=== PATIENT | male | born 1995 | race African-American/Black ===

== ENCOUNTER 2017-06-28 10:12 | Emergency (ER) | payer SELFPAY | END 2017-06-28 12:08 | disposition home or self-care (01) | LOC: ERS 10:12 | DX: J06.9 Acute upper respiratory infection, unspecified (principal); J45.909 Unspecified asthma, uncomplicated; F17.210 Nicotine dependence, cigarettes, uncomplicated | CPT/HCPCS: 87081; 87430; 99283 ==

== ENCOUNTER 2018-03-14 14:58 | Emergency (ER) | payer SELFPAY ==
[2018-03-14 16:53] LABS: Bilirubin Negative (Negative); Blood, Urine Negative (Negative); Clarity CLEAR (Clear); Glucose, Urine (Dipstick) Negative (Negative); Leukocyte Large (Negative); Nitrite Negative (Negative); Protein, Urine (Dipstick) Negative (Neg-Trace)
[2018-03-14 16:55] LABS: Bacteria/HPF None Seen HPF (None Seen); Hyaline Casts/LPF 4-6 HYALINE CAST LPF (0-3 Hyaline); Pathc Cast-AUWi Flag 0.58 (0-2.49); RBC/HPF 0-3 HPF (0-3); WBC/HPF 21-50 HPF (0-3)
[2018-03-14 17:08] LABS: Renal Epithelial None Seen HPF (0-3); Transitional Epithelial NONE SEEN HPF (0-3)
--- NOTE | 2018-03-14 18:02 | ULT ---
ULTRASOUND SCROTUM TESTICLES DOPPLER DUPLEX: 03/14/18 HISTORY: 22-year-old male with left scrotal pain and swelling for two days. TECHNIQUE: Choi-scale evaluation of intrascrotal contents. Color flow Doppler and spectral waveform analysis of the testicles. FINDINGS: There is increased blood flow (hyperemia) involving a left intrascrotal, extra-testicular mass which probably represents an enlarged, edematous left epididymal body and tail. There is a small left hydro kuldeep which appears loculated. The left epididymal head, right epididymal head, left testicle, and right testicle, are normal in siz e and echogenicity. Symmetrical blood flow is demonstrated in both testicles by doppler. No evidence of solid testicular mass. IMPRESSION: Evidence for left sided epididymitis (involving the body and tail of the epididymis). VANDA Ruiz POS: [facility]
[2018-03-14] MEDS ORDERED: Azithromycin 250 MG TAB ONE (18:04)
[2018-03-14] MEDS ORDERED: cefTRIAXone\\ROCEPHIN 250 MG VIAL ONE (18:04)
[2018-03-14] MEDS ORDERED: Lidocaine 1% (PF) 30 ML VIAL ONE (18:05)
[2018-03-16 01:14] LABS: Chlamydia by PCR DETECTED (NotDetected); GC by PCR Not Detected (NotDetected)
== END 2018-03-14 18:34 | disposition home or self-care (01) ==
LOC: ERS 14:58
DX: N45.1 Epididymitis (principal); J45.909 Unspecified asthma, uncomplicated; F17.210 Nicotine dependence, cigarettes, uncomplicated
CPT/HCPCS: 76870; 81003; 81015; 87491; 87591; 96372; J0696; J2001

== ENCOUNTER 2021-06-02 15:39 | Emergency (ER) | payer SELFPAY | END 2021-06-02 17:37 | disposition left against medical advice (07) | LOC: ERS 15:39 | DX: R50.9 Fever, unspecified (principal) | CPT/HCPCS: 99282 ==

== ENCOUNTER 2022-03-31 15:48 | Observation (INO) | payer SELFPAY ==
[2022-03-31 16:27] LABS: #Lymphocytes 1.5 thou/uL (1.20-3.40); #Monocytes 0.5 thou/uL (0.11-0.59); #Neutrophils 9.4 thou/uL (1.40-6.50); %Basophils 0.4 % (0.0-1.0); %Eosinophils 0.2 % (0.0-10.0); %Monocytes 4.6 % (0.0-10.0); %Neutrophils 81.8 % (42.0-75.0); Hemoglobin 16.4 g/dL (14.0-18.0); Mean Corpuscular HGB CONC 33.1 g/dL (32.0-36.0); Mean Corpuscular Hemoglobin 31.9 pg (27.0-31.0); Mean Corpuscular Volume 96.4 fL (78.0-98.0); Mean Platelet Volume 8.1 fL (7.4-10.4); Platelet Count 237 thou/uL (130-400); RBC Distribution Width 12.1 % (11.5-14.5); Red Blood Cell (RBC) Count 5.16 mill/uL (4.70-6.10); White Blood Cell (WBC) Count 11.4 thou/uL (4.8-10.8)
[2022-03-31 16:48] LABS: ALT (SGPT) 21 U/L (8-55); AST (SGOT) 39 U/L (5-34); Albumin 4.6 g/dL (3.5-5.0); Alkaline Phosphatase 90 U/L (40-110); Anion Gap 18 mmol/L (10-20); BUN (Urea Nitrogen) 10 mg/dL (8.9-20.6); CK (CPK) 919 U/L (30-200); Calc. Creatinine Clearance 0 mL/min (70-130); Calcium 9.8 mg/dL (7.8-10.44); Carbon Dioxide 26 mmol/L (22-29); Chloride 101 mmol/L (98-107); Estimated GFR 44; Globulin 2.7 g/dL (2.4-3.5); Glucose 126 mg/dL (70-105); Protein, Total 7.3 g/dL (6.0-8.3); Sodium 141 mmol/L (136-145)
[2022-03-31] MEDS ORDERED: Ondansetron PF 4 MG/2 ML Vial ONE (17:07)
[2022-03-31] MEDS ORDERED: Ondansetron PF 4 MG/2 ML Vial IVP PRN (17:57)
[2022-03-31] MEDS ORDERED: Ondansetron ODT 4 MG TAB PO PRN (17:57)
[2022-03-31] MEDS ORDERED: Acetaminophen 325 MG TAB PO PRN (17:57)
[2022-03-31] MEDS: Sodium Chloride 0.9% 1,000 ML IV SCH (20:47)
[2022-03-31 21:28] VITALS: BMI 19.3
[2022-04-01] MEDS: Sodium Chloride 0.9% 1,000 ML IV SCH (03:53)
[2022-04-01 05:46] LABS: #Eosinphils 0.1 thou/uL (0.0-0.7); #Lymphocytes 2.2 thou/uL (1.20-3.40); #Monocytes 0.4 thou/uL (0.11-0.59); #Neutrophils 3.8 thou/uL (1.40-6.50); %Basophils 0.4 % (0.0-1.0); %Eosinophils 1.3 % (0.0-10.0); %Lymphocytes 34.2 % (21.0-51.0); %Monocytes 5.7 % (0.0-10.0); %Neutrophils 58.3 % (42.0-75.0); Hemoglobin 13.7 g/dL (14.0-18.0); Mean Corpuscular HGB CONC 32.9 g/dL (32.0-36.0); Mean Corpuscular Hemoglobin 32.1 pg (27.0-31.0); Mean Corpuscular Volume 97.6 fL (78.0-98.0); Mean Platelet Volume 8.4 fL (7.4-10.4); Platelet Count 200 thou/uL (130-400); RBC Distribution Width 12.1 % (11.5-14.5); Red Blood Cell (RBC) Count 4.25 mill/uL (4.70-6.10); White Blood Cell (WBC) Count 6.5 thou/uL (4.8-10.8)
[2022-04-01 06:17] LABS: Amphetamine Detected (NotDetected); Barbiturates Screen Not Detected (NotDetected); Benzodiazepine Screen Not Detected (NotDetected); Cocaine Metabolite Screen Not Detected (NotDetected); Methadone Not Detected (NotDetected); Methamphetamine Detected (NotDetected); Opiate Screen Not Detected (NotDetected); Oxycodone Screen Not Detected (NotDetected); Phencyclidine (PCP) Not Detected (NotDetected); THC/Cannabinoid Screen Detected (NotDetected); Tricyclic Screen Not Detected (NotDetected)
[2022-04-01 07:17] LABS: ALT (SGPT) 14 U/L (8-55); AST (SGOT) 42 U/L (5-34); Albumin 3.2 g/dL (3.5-5.0); Alkaline Phosphatase 66 U/L (40-110); Anion Gap 9 mmol/L (10-20); BUN (Urea Nitrogen) 7 mg/dL (8.9-20.6); Bilirubin, Total 1.6 mg/dL (0.2-1.2); Calc. Creatinine Clearance 99 mL/min (70-130); Calcium 8.5 mg/dL (7.8-10.44); Carbon Dioxide 23 mmol/L (22-29); Chloride 109 mmol/L (98-107); Estimated GFR 113; Globulin 1.8 g/dL (2.4-3.5); Glucose 145 mg/dL (70-105); Potassium 3.4 mmol/L (3.5-5.1); Sodium 138 mmol/L (136-145)
[2022-04-01 12:02] VITALS: BP 118/80; TEMP 97.6
== END 2022-04-01 13:10 | disposition home or self-care (01) ==
LOC: ERS 15:48 → SUATTDRO 15:48 → T4-A 18:03
PROVIDERS: ADMIT Internal Medicine; ATTEND Internal Medicine
DX: M62.82 Rhabdomyolysis (principal); N17.9 Acute kidney failure, unspecified; T67.5XXA Heat exhaustion, unspecified, initial encounter; J45.909 Unspecified asthma, uncomplicated; F17.210 Nicotine dependence, cigarettes, uncomplicated; Z66 Do not resuscitate; Z20.822 Contact with and (suspected) exposure to COVID-19; X30.XXXA Exposure to excessive natural heat, initial encounter
CPT/HCPCS: 36415; 80053; 80306; 82550; 85025; 93005; G0378; J2405; J7050; U0003; U0005

== ENCOUNTER 2022-08-19 10:33 | Emergency (ER) | payer SELFPAY ==
[2022-08-19] MEDS ORDERED: Dexamethasone 10 MG/ML VIAL ONE ×2 (12:04→12:05)
== END 2022-08-19 13:22 | disposition home or self-care (01) ==
LOC: ERS 10:33
DX: J45.901 Unspecified asthma with (acute) exacerbation (principal); F17.210 Nicotine dependence, cigarettes, uncomplicated
CPT/HCPCS: 94640; J1100; J7620

== ENCOUNTER 2025-05-29 02:42 | Emergency (ER) | payer OTHER | END 2025-05-29 04:04 | disposition home or self-care (01) | LOC: ERS 02:42 | DX: J45.901 Unspecified asthma with (acute) exacerbation (principal); F17.210 Nicotine dependence, cigarettes, uncomplicated | CPT/HCPCS: J7620 ==

== ENCOUNTER 2025-09-20 09:07 | Emergency (ER) | payer OTHER ==
[2025-09-20] MEDS ORDERED: Dexamethasone 10 MG/ML VIAL ONE (13:13)
== END 2025-09-20 13:27 | disposition home or self-care (01) ==
LOC: ERS 09:07
DX: J11.1 Influenza due to unidentified influenza virus with other respiratory manifestations (principal); J45.909 Unspecified asthma, uncomplicated; F17.210 Nicotine dependence, cigarettes, uncomplicated; Z79.51 Long term (current) use of inhaled steroids
CPT/HCPCS: 87081; 87428; 87430; J1100; Q0162